=== PATIENT | male | born 1995 | race Caucasian/White ===

== ENCOUNTER 2018-06-11 17:35 | Emergency (ER) | payer OTHER ==
--- NOTE | 2018-06-11 18:09 | ER Report ---
History and Physical Time Seen By MD: 18:09 HPI/ROS CHIEF COMPLAINT: Requesting alcohol detox HISTORY OF PRESENT ILLNESS: 22-year-old male presents ambulatory to the ER requesting alcohol detox. Patient has an extensive history sits age 16 of drinking daily. He started out with 3 shots per day. Now he is on 6 shots per day of hard liquor. Patient states that he suffers blackouts, requiring eye- oyster opener. He's never had full-blown withdrawal seizure. Last weekend he tried to stop on his own, was unsuccessful. Patient has a student at [email or web address]. He also works. His drinking is beginning to interfere with his work and his school performance. Patient denies any previous alcohol treatment. Patient thinks he drinks mostly for depression. Patient denies family history of alcoholism. Patient's last alcohol was 4 hours ago. REVIEW OF SYSTEMS: Respiratory: No cough, no dyspnea. Cardiovascular: No chest pain, no palpitations. Gastrointestinal: No vomiting, no abdominal pain. Musculoskeletal: No back pain. Allergies: Coded Allergies: No Known Drug Allergies (Unverified , 06/11/18) Home Meds No Active Prescriptions or Reported Meds Reviewed Nurses Notes: Yes Old Medical Records Reviewed: Yes Constitutional Vital Sign - Last 24 Hours 06/11/18 06/11/18 18:34 20:00 Temp 98.0 Pulse 90 Resp 16 B/P (MAP) 127/92 128/51 (76) Pulse Ox 97 O2 Delivery Room Air Physical Exam General Appearance: The patient is alert, has no immediate need for airway pr otection and no current signs of toxicity. Vital signs stable, afebrile, mildly hypertensive, HEENT: Pupils equal and round no injection. Anicteric sclera, oropharynx without redness or exudate, mucous membranes are moist Respiratory: Chest is non tender, lungs are clear to auscultation. Cardiac: regular rate and rhythm Gastrointestinal: Abdomen is soft and non tender, no masses, bowel sounds no rmal. Musculoskeletal: Neck: Neck is supple and non tender. Extremities have full range of motion and are non tender. Skin: No rashes or lesions. DIFFERENTIAL DIAGNOSIS: After history and physical exam differential diagnosis was considered for depression including functional and major depression, situational depression, medication side effect, drugs and alcohol abuse. Medical Decision Making Data Points Result Diagram: 06/11/18184406/11/181844 Laboratory Hematology Test 06/11/18 18:22 06/11/18 18:45 Urine Color Yellow Urine Clarity Clear Urine pH 7.0 pH (4.8-9.5) Urine Specific [place] 1.006 Urine Protein Negative mg/dL (NEGATIVE) Urine Glucose (UA) Negative mg/dL (NEGATIVE) Urine Ketones Negative mg/dL (NEGATIVE) Urine Blood Negative (NEGATIVE) Urine Nitrite Negative (NEGATIVE) Urine Bilirubin Negative (NEGATIVE) Urine Urobilinogen Negative mg/dL (0.2-1.9) Urine Leukocyte Esterase Negative (NEGATIVE) Urine RBC <1 /HPF (0-2/HPF) Urine WBC <1 /HPF (0-5/HPF) Urine Squamous Epithelial Cells None /LPF (</=FEW) Urine Bacteria Negative /HPF (NONE-FEW) Urine Mucus None /HPF (NONE-FEW) Urine Opiates Screen Negative Urine Barbiturates Screen Negative Ur Tricyclic Antidepressants Screen Negative Urine Phencyclidine Screen Negative Urine Amphetamines Screen Negative Urine Benzodiazepines Screen Negative Urine Cocaine Screen Negative Urine Cannabinoids Screen Negative Red Blood Count 5.83 M/uL (4.00-5.60) Mean Corpuscular Volume 93.1 fL (80.0-96.0) Mean Corpuscular Hemoglobin 32.7 pg (26.0-33.0) Mean Corpuscular Hemoglobin Concent 35.1 g/dL (32.0-36.0) Red Cell Distribution Width 13.4 % (11.5-14.5) Mean Platelet Volume 8.9 fL (7.2-11.1) Neutrophils (%) (Auto) 61.8 % (39.4-72.5) Lymphocytes (%) (Auto) 29.7 % (17.6-49.6) Monocytes (%) (Auto) 7.7 % (4.1-12.4) Eosinophils (%) (Auto) 0.1 % (0.4-6.7) Basophils (%) (Auto) 0.7 % (0.3-1.4) Nucleated RBC Relative Count (auto) 0.1 /100WBC Neutrophils # (Auto) 2.6 K/uL (2.0-7.4) Lymphocytes # (Auto) 1.3 K/uL (1.3-3.6) Monocytes # (Auto) 0.3 K/uL (0.3-1.0) Eosinophils # (Auto) 0.0 K/uL (0.0-0.5) Basophils # (Auto) 0.0 K/uL (0.0-0.1) Nucleated RBC Absolute Count (auto) 0.01 K/uL Sodium Level 143 mmol/L (137-145) Potassium Level 4.0 mmol/L (3.5-5.0) Chloride Level 104 mmol/L (98-107) Carbon Dioxide Level 26 mmol/L (22-30) Blood Urea Nitrogen 7 mg/dl (9-21) Creatinine 0.90 mg/dl (0.66-1.25) Glomerular Filtration Rate Calc > 60.0 Random Glucose 93 mg/dl (75-110) Calcium Level 8.9 mg/dl (8.4-10.2) Magnesium Level 2.1 mg/dl (1.7-2.2) Total Bilirubin 0.8 mg/dl (0.2-1.3) Aspartate Amino Transf (AST/SGOT) 57 U/L (0-35) Alanine Aminotransferase (ALT/SGPT) 45 U/L (0-56) Alkaline Phosphatase 95 U/L (0-126) Total Protein 7.4 g/dl (6.3-8.2) Albumin 4.7 g/dl (3.5-5.0) Thyroid Stimulating Hormone (TSH) 0.79 uIU/ml (0.46-4.68) Salicylates Level < 10 mg/L Salicylate Last Dose Date unk Acetaminophen Level < 10 ug/ml Serum Alcohol 363 mg/dl Chemistry Test 06/11/18 18:22 06/11/18 18:45 Urine Color Yellow Urine Clarity Clear Urine pH 7.0 pH (4.8-9.5) Urine Specific [place] 1.006 Urine Protein Negative mg/dL (NEGATIVE) Urine Glucose (UA) Negative mg/dL (NEGATIVE) Urine Ketones Negative mg/dL (NEGATIVE) Urine Blood Negative (NEGATIVE) Urine Nitrite Negative (NEGATIVE) Urine Bilirubin Negative (NEGATIVE) Urine Urobilinogen Negative mg/dL (0.2-1.9) Urine Leukocyte Esterase Negative (NEGATIVE) Urine RBC <1 /HPF (0-2/HPF) Urine WBC <1 /HPF (0-5/HPF) Urine Squamous Epithelial Cells None /LPF (</=FEW) Urine Bacteria Negative /HPF (NONE-FEW) Urine Mucus None /HPF (NONE-FEW) Urine Opiates Screen Negative Urine Barbiturates Screen Negative Ur Tricyclic Antidepressants Screen Negative Urine Phencyclidine Screen Negative Urine Amphetamines Screen Negative Urine Benzodiazepines Screen Negative Urine Cocaine Screen Negative Urine Cannabinoids Screen Negative White Blood Count 4.2 k/uL (4.5-11.0) Red Blood Count 5.83 M/uL (4.00-5.60) Hemoglobin 19.1 g/dL (14.0-18.0) Hematocrit 54.3 % (42.0-52.0) Mean Corpuscular Volume 93.1 fL (80.0-96.0) Mean Corpuscular Hemoglobin 32.7 pg (26.0-33.0) Mean Corpuscular Hemoglobin Concent 35.1 g/dL (32.0-36.0) Red Cell Distribution Width 13.4 % (11.5-14.5) Platelet Count 305 K/uL (150-450) Mean Platelet Volume 8.9 fL (7.2-11.1) Neutrophils (%) (Auto) 61.8 % (39.4-72.5) Lymphocytes (%) (Auto) 29.7 % (17.6-49.6) Monocytes (%) (Auto) 7.7 % (4.1-12.4) Eosinophils (%) (Auto) 0.1 % (0.4-6.7) Basophils (%) (Auto) 0.7 % (0.3-1.4) Nucleated RBC Relative Count (auto) 0.1 /100WBC Neutrophils # (Auto) 2.6 K/uL (2.0-7.4) Lymphocytes # (Auto) 1.3 K/uL (1.3-3.6) Monocytes # (Auto) 0.3 K/uL (0.3-1.0) Eosinophils # (Auto) 0.0 K/uL (0.0-0.5) Basophils # (Auto) 0.0 K/uL (0.0-0.1) Nucleated RBC Absolute Count (auto) 0.01 K/uL Glomerular Filtration Rate Calc > 60.0 Calcium Level 8.9 mg/dl (8.4-10.2) Magnesium Level 2.1 mg/dl (1.7-2.2) Total Bilirubin 0.8 mg/dl (0.2-1.3) Aspartate Amino Transf (AST/SGOT) 57 U/L (0-35) Alanine Aminotransferase (ALT/SGPT) 45 U/L (0-56) Alkaline Phosphatase 95 U/L (0-126) Total Protein 7.4 g/dl (6.3-8.2) Albumin 4.7 g/dl (3.5-5.0) Thyroid Stimulating Hormone (TSH) 0.79 uIU/ml (0.46-4.68) Salicylates Level < 10 mg/L Salicylate Last Dose Date unk Acetaminophen Level < 10 ug/ml Serum Alcohol 363 mg/dl Toxicology Test 06/11/18 18:22 06/11/18 18:45 Urine Opiates Screen Negative Urine Barbiturates Screen Negative Ur Tricyclic Antidepressants Screen Negative Urine Phencyclidine Screen Negative Urine Amphetamines Screen Negative Urine Benzodiazepines Screen Negative Urine Cocaine Screen Negative Urine Cannabinoids Screen Negative Salicylates Level < 10 mg/L Salicylate Last Dose Date unk Acetaminophen Level < 10 ug/ml Serum Alcohol 363 mg/dl Urinalysis Test 06/11/18 18:22 Urine Color Yellow Urine Clarity Clear Urine pH 7.0 pH (4.8-9.5) Urine Specific [place] 1.006 Urine Protein Negative mg/dL (NEGATIVE) Urine Glucose (UA) Negative mg/dL (NEGATIVE) Urine Ketones Negative mg/dL (NEGATIVE) Urine Blood Negative (NEGATIVE) Urine Nitrite Negative (NEGATIVE) Urine Bilirubin Negative (NEGATIVE) Urine Urobilinogen Negative mg/dL (0.2-1.9) Urine Leukocyte Esterase Negative (NEGATIVE) Urine RBC <1 /HPF (0-2/HPF) Urine WBC <1 /HPF (0-5/HPF) Urine Squamous Epithelial Cells None /LPF (</=FEW) Urine Bacteria Negative /HPF (NONE-FEW) Urine Mucus None /HPF (NONE-FEW) ED Course/Re-evaluation Clinical Indication for ER IV: Hydration, IV Access ED Course Patient was admitted to an examination room. H&P was done. The differential diagnoses was considered. Patient was treated with IV banana bag. Diagnostic evaluation was ordered. Patient's requesting medical detox. He is willing to be admitted voluntarily. He has no suicidal ideation. Results of his diag nostic studies are discussed with behavioral health services staff Ashley Guy who accepts patient for admission for detox. 06/11/2018 7:23:23 pm case discussed with Ashley Guy nurse practitioner [facility] Decision to Disposition Date: Jun 11, 2018 Decision to Disposition Time: 18:33 Depart Departure Latest Vital Signs Vital Signs Date Time Temp Pulse Resp B/P (MAP) Pulse Ox O2 Delivery O2 Flow Rate FiO2 06/11/18 20:00 128/51 (76) 06/11/18 18:34 98.0 90 16 97 Room Air Impression: Primary Impression: Alcohol dependence Condition: Improved Disposition: XFER TO [facility] New Scripts No Active Prescriptions or Reported Meds Problem Qualifiers Primary Impression: Alcohol dependence Substance use status: uncomplicated Qualified Codes: F10.20 - Alcohol dependence, uncomplicated ROE CHAUDHRY DO Jun 11, 2018 18:09
[2018-06-11] MEDS ORDERED: THIAMINE HCL(*) 200 MG/2 ML IN 100 MG, FOLIC ACID(*) 50 MG/10 ML INJ 1 MG, MULTIVITAMIN... IV ONE (18:19)
[2018-06-11 18:55] LABS: PLATELET COUNT, AUTOMATED 305 K/uL (150-450)
[2018-06-11 20:00] VITALS: BP 128/51
== END 2018-06-11 20:20 ==
LOC: ER 18:33
DX: F10.20 Alcohol dependence, uncomplicated (principal)
CPT/HCPCS: 80305; 80320; 80329; 81001; 83735; 84443; 85025; 96365; 99284; J3411; J3475; J7030; 82040; 82247; 82310; 82374; 82435; 82565; 82947; 84075; 84132; 84155; 84295; 84450; 84460; 84520

== ENCOUNTER 2018-06-11 19:47 | Inpatient (IN) | payer OTHER ==
[~2018-06-11] VITALS: Ht 175.3 cm; Wt 59.0 kg
[2018-06-11 20:25] VITALS: BP 130/80
[2018-06-11] MEDS ORDERED: DIAZEPAM 10 MG TAB PO PRN (20:55)
[2018-06-12] MEDS ORDERED: MAG HYD/AL HYD/SIMETH 30ML UDC PO PRN (00:20)
[2018-06-12 01:10] VITALS: BP 132/86
[2018-06-12] MEDS: DIAZEPAM 10 MG TAB PO PRN ×6 (01:33→10:17)
[2018-06-12 07:50] VITALS: BP 124/64
[2018-06-12] MEDS: MULTIVITAMINS PO SCH (08:12)
[2018-06-12] MEDS: THIAMINE HCL 100 MG TAB PO SCH (08:12)
[2018-06-12] MEDS: FOLIC ACID 1 MG TAB PO SCH (08:12)
[2018-06-12 08:50] VITALS: BP 118/88
[2018-06-12 12:20] VITALS: BP 126/80
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
[2018-06-12 16:55] VITALS: BP 118/82
[2018-06-12 21:13] VITALS: BP 127/81
[2018-06-13 06:11] VITALS: BP 120/83
[2018-06-13] MEDS: FOLIC ACID 1 MG TAB PO SCH (08:12)
[2018-06-13] MEDS: MULTIVITAMINS PO SCH (08:12)
[2018-06-13] MEDS: THIAMINE HCL 100 MG TAB PO SCH (08:13)
--- NOTE | 2018-06-13 08:29 | BHS Progress Note ---
S - Subjective Progress Notes Subjective "I guess I drank too much and thought it was warranted to come in here." Denies depression, some anxiety "about money issues" states has missed two days of work, hasn't notified parents or employer of admission Denies anger or mood swings, sleep sufficient, reports sleep insufficient at home Attending [employer] studying linguistics, working at [employer] History of drinking eight shots of Vodka dailly Fine tremor, denies NVD Suicidal Ideation: None Homicidal Ideation: None S - Objective Physical Exam Vital Signs Vital Signs Date Time Temp Pulse Resp B/P (MAP) Pulse Ox O2 Delivery O2 Flow Rate FiO2 06/13/18 06:11 98.1 72 120/83 (95) 95 Room Air 06/12/18 16:55 20 Muscle Strength and Tone: WNL Gait and Station: Steady BH Medications Reviewed: Side Effects, Benefits of Medication Allergies Reviewed: Yes Mental Status Exam General Appearance: Casual, Well Groomed, Good Eye Contact, Cooperative, Polite, Good Interaction Speech: Clear, Spontaneous, Normal Rate, Normal Rhythm, Normal Volume, Normal Tone Mood: Dysthmic/Depressed (denies depression, low mood), Euthymic Affect: Full and Appropriate, Calm, Neutral Thought Process: Logical, Goal Directed; No Loose Associations, No Flight of Ideas Thought Content: No Suicidal Ideation, No Homicidal Ideation, No Delusions, No Auditory Halllucinations, No Visual Hallucinations, No Thought Broadcasting, No Ideas of Reference, No Obsessions Sensorium: Clear Cognition: Alert & Oriented-Person, Alert & Oriented-Place, Alert & Oriented- Time, Rabou-Rvbjkhyp-Wvekehwzd Memory: Immediate, Recent, Remote Intelligence: Average Microbiology Medications (Trade) Dose Ordered Sig/Ministerio Route PRN Reason Start Time Stop Time Status Last Admin Dose Admin Diazepam (Valium(*) 10 Mg Tab (Or Equiv)) 20 mg Q1H PRN PO FOLLOW CIWA PROTOCOL 06/11/18 20:55 06/25/18 20:54 06/12/18 10:17 Folic Acid (Folic Acid (*) 1 Mg Tab) 1 mg QDAY PO 06/12/18 09:00 07/12/18 08:59 06/13/18 08:12 Multivitamins (Thera-M Enhanced Tab (Or Equiv)) 1 each QDAY PO 06/12/18 09:00 07/12/18 08:59 06/13/18 08:12 Thiamine HCl (Vitamin B-1(*) 100 Mg Tab (Or Equiv)) 100 mg QDAY PO 06/12/18 09:00 07/12/18 08:59 06/13/18 08:13 [facility] Assessment and Plan [id number] Encounter Date: Jun 13, 2018 [id number] Encounter Time: 08:26 Multpiple Antipsychotics Used: No Problems: (1) Alcohol withdrawal Status: Acute (2) Alcohol use disorder, severe, dependence Status: Chronic Condition Continue [facility]WA protocol Maintain precautions Continue detox,k discuss outpatient substance abuse treatment DAAJ SOTO NP Jun 13, 2018 08:29
[2018-06-13 10:00] VITALS: BP 108/58
[2018-06-13 14:20] VITALS: BP 102/62
[2018-06-13 20:38] VITALS: BP 121/74
[2018-06-14 06:13] VITALS: BP 124/82
[2018-06-14] MEDS: FOLIC ACID 1 MG TAB PO SCH (08:17)
[2018-06-14] MEDS: THIAMINE HCL 100 MG TAB PO SCH (08:17)
[2018-06-14] MEDS: MULTIVITAMINS PO SCH (08:17)
--- NOTE | 2018-06-14 08:25 | BHS Progress Note ---
S - Subjective Progress Notes Subjective "I'm doing ok. I might consider AA but other than that I don't know if I have time for anything else." States had slight urge to drink last night, sleep variable Denies NVD, denies tremor, alcohol withdrawal considered complete Denies depression, anxiety or anger Suicidal Ideation: None Homicidal Ideation: None S - Objective Physical Exam Vital Signs Vital Signs Date Time Temp Pulse Resp B/P (MAP) Pulse Ox O2 Delivery O2 Flow Rate FiO2 06/14/18 06:13 97.2 62 124/82 (96) 97 Room Air 06/13/18 14:20 16 Muscle Strength and Tone: WNL Gait and Station: Steady [facility] Medications Reviewed: Side Effects, Benefits of Medication Allergies Reviewed: Yes Mental Status Exam General Appearance: Casual, Well Groomed, Good Eye Contact, Cooperative, Polite, Good Interaction Speech: Clear, Spontaneous, Normal Rate, Normal Rhythm, Normal Volume, Normal Tone Mood: Dysthmic/Depressed (denies depression, low mood), Euthymic Affect: Full and Appropriate, Calm, Neutral, Flat Thought Process: Logical, Goal Directed; No Loose Associations, No Flight of Ideas Thought Content: No Suicidal Ideation, No Homicidal Ideation, No Delusions, No Auditory Halllucinations, No Visual Hallucinations, No Thought Broadcasting, No Ideas of Reference, No Obsessions Sensorium: Clear Cognition: Alert & Oriented-Person, Alert & Oriented-Place, Alert & Oriented- Time, Zuufa-Zdbtypys-Fuzojbmvu Memory: Immediate, Recent, Remote Intelligence: Average [facility] Assessment and Plan Ojux-[id number] Encounter Date: Jun 14, 2018 [id number] Encounter Time: 08:20 Multpiple Antipsychotics Used: No Problems: (1) Alcohol use disorder, severe, dependence Status: Chronic (2) Alcohol withdrawal Status: Resolved Condition Discharge to home Alcohol withdrawal considered complete Follow up with individual substance abuse counseling, AA Crisis line # provided, encourage use for worsening s/s Return to ER for SI/HI, worsening symptoms DAJA SOTO NP Jun 14, 2018 08:25
[2018-06-14 09:28] VITALS: BP 118/82
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
== END 2018-06-14 10:05 | disposition home or self-care (01) | DRG 897 ==
LOC: BHS 19:47
PROVIDERS: ADMIT Nurse Practitioner Psychiatric/Mental Health; ATTEND Nurse Practitioner Psychiatric/Mental Health
DX: F10.230 Alcohol dependence with withdrawal, uncomplicated (principal); F17.210 Nicotine dependence, cigarettes, uncomplicated; F41.9 Anxiety disorder, unspecified; Y90.8 Blood alcohol level of 240 mg/100 ml or more; Z91.5 Personal history of self-harm; Z73.3 Stress, not elsewhere classified; Z55.9 Problems related to education and literacy, unspecified; Z81.1 Family history of alcohol abuse and dependence; Z81.8 Family history of other mental and behavioral disorders

== ENCOUNTER 2018-09-18 08:12 | Emergency (ER) | payer OTHER ==
--- NOTE | 2018-09-18 08:15 | ER Report ---
History and Physical Time Seen By MD: 08:15 HPI/ROS CHIEF COMPLAINT: Alcohol intoxication, withdrawal symptoms HISTORY OF PRESENT ILLNESS: Patient is a 22-year-old male with complaints of alcoholism here after heavily drinking yesterday. Patient was brought to the emergency department with desire for detoxification from alcohol. Patient reports ongoing heavy alcohol consumption. Denies homicidal or suicidal ideations. REVIEW OF SYSTEMS: Constitutional: No fever, no chills. Eyes: No discharge. ENT: No sore throat. Cardiovascular: No chest pain, no palpitations. Respiratory: No cough, no shortness of breath. Gastrointestinal: No abdominal pain, no vomiting. Genitourinary: No hematuria. Musculoskeletal: No back pain. Skin: No rashes. Neurological: No headache. Allergies: Coded Allergies: No Known Drug Allergies (Unverified , 06/11/18) Home Meds Reported Medications Nicotine (NICOTROL) 10 Mg/Inh Ctr, 10 MG INH PRN PRN for NICOTINE REPLACEMENT 09/20/18 Hx Smoking: Yes Smoking Status: Current: Every Day Smoker, Heavy Tobacco Smoker Hx Alcohol Use: Yes Physical Exam General Appearance: The patient is alert, has no immediate need for airway protection and no signs of toxicity. Withdrawal symptoms Eyes: Pupils equal and round no pallor or injection. ENT, Mouth: Mucous membranes are moist. Respiratory: There are no retractions, lungs are clear to auscultation. Cardiovascular: Regular rate and rhythm. [ ] Gastrointestinal: Abdomen is soft and non tender, no masses, bowel sounds normal. Neurological: No focal neurological findings Skin: Warm and dry, no rashes. Musculoskeletal: Neck is supple non tender. Extremities are nontender, nonswollen and have full range of motion. DIFFERENTIAL DIAGNOSIS: After history and physical exam differential diagnosis was considered for alcohol dependence, alcohol withdrawal, polysubstance abuse, depression Medical Decision Making Data Points Laboratory Hematology Test 09/18/18 08:30 09/18/18 09:36 Red Blood Count 5.54 M/uL (4.00-5.60) Mean Corpuscular Volume 90.6 fL (80.0-96.0) Mean Corpuscular Hemoglobin 31.4 pg (26.0-33.0) Mean Corpuscular Hemoglobin Concent 34.6 g/dL (32.0-36.0) Red Cell Distribution Width 12.5 % (11.5-14.5) Mean Platelet Volume 9.3 fL (7.2-11.1) Neutrophils (%) (Auto) 68.7 % (39.4-72.5) Lymphocytes (%) (Auto) 23.4 % (17.6-49.6) Monocytes (%) (Auto) 7.6 % (4.1-12.4) Eosinophils (%) (Auto) 0.1 % (0.4-6.7) Basophils (%) (Auto) 0.2 % (0.3-1.4) Nucleated RBC Relative Count (auto) 0.1 /100WBC Neutrophils # (Auto) 7.0 K/uL (2.0-7.4) Lymphocytes # (Auto) 2.4 K/uL (1.3-3.6) Monocytes # (Auto) 0.8 K/uL (0.3-1.0) Eosinophils # (Auto) 0.0 K/uL (0.0-0.5) Basophils # (Auto) 0.0 K/uL (0.0-0.1) Nucleated RBC Absolute Count (auto) 0.01 K/uL Sodium Level 139 mmol/L (137-145) Potassium Level 4.0 mmol/L (3.5-5.0) Chloride Level 102 mmol/L (98-107) Carbon Dioxide Level 18 mmol/L (22-30) Blood Urea Nitrogen 14 mg/dl (9-21) Creatinine 0.80 mg/dl (0.66-1.25) Glomerular Filtration Rate Calc > 60.0 Random Glucose 67 mg/dl (75-110) Calcium Level 8.8 mg/dl (8.4-10.2) Magnesium Level 1.6 mg/dl (1.7-2.2) Total Bilirubin 0.8 mg/dl (0.2-1.3) Aspartate Amino Transf (AST/SGOT) 88 U/L (0-35) Alanine Aminotransferase (ALT/SGPT) 81 U/L (0-56) Alkaline Phosphatase 99 U/L (0-126) Total Protein 7.1 g/dl (6.3-8.2) Albumin 4.8 g/dl (3.5-5.0) Thyroid Stimulating Hormone (TSH) 1.38 uIU/ml (0.46-4.68) Salicylates Level < 10 mg/L Salicylate Last Dose Date Unk Acetaminophen Level < 10 ug/ml Serum Alcohol 82 mg/dl Urine Color Yellow Urine Clarity Clear Urine pH 5.0 pH (4.8-9.5) Urine Specific [place] 1.028 Urine Protein Negative mg/dL (NEGATIVE) Urine Glucose (UA) Negative mg/dL (NEGATIVE) Urine Ketones 80 mg/dL (NEGATIVE) Urine Blood Negative (NEGATIVE) Urine Nitrite Negative (NEGATIVE) Urine Bilirubin Negative (NEGATIVE) Urine Urobilinogen Negative mg/dL (0.2-1.9) Urine Leukocyte Esterase Negative (NEGATIVE) Urine RBC <1 /HPF (0-2/HPF) Urine WBC <1 /HPF (0-5/HPF) Urine Squamous Epithelial Cells Few /LPF (</=FEW) Urine Bacteria Negative /HPF (NONE-FEW) Urine Hyaline Casts Many /LPF (NONE-FEW) Urine Mucus Few /HPF (NONE-FEW) Urine Opiates Screen Negative Urine Barbiturates Screen Negative Ur Tricyclic Antidepressants Screen Negative Urine Phencyclidine Screen Negative Urine Amphetamines Screen Negative Urine Benzodiazepines Screen Negative Urine Cocaine Screen Negative Urine Cannabinoids Screen Negative Chemistry Test 09/18/18 08:30 09/18/18 09:36 White Blood Count 10.2 k/uL (4.5-11.0) Red Blood Count 5.54 M/uL (4.00-5.60) Hemoglobin 17.4 g/dL (14.0-18.0) Hematocrit 50.2 % (42.0-52.0) Mean Corpuscular Volume 90.6 fL (80.0-96.0) Mean Corpuscular Hemoglobin 31.4 pg (26.0-33.0) Mean Corpuscular Hemoglobin Concent 34.6 g/dL (32.0-36.0) Red Cell Distribution Width 12.5 % (11.5-14.5) Platelet Count 301 K/uL (150-450) Mean Platelet Volume 9.3 fL (7.2-11.1) Neutrophils (%) (Auto) 68.7 % (39.4-72.5) Lymphocytes (%) (Auto) 23.4 % (17.6-49.6) Monocytes (%) (Auto) 7.6 % (4.1-12.4) Eosinophils (%) (Auto) 0.1 % (0.4-6.7) Basophils (%) (Auto) 0.2 % (0.3-1.4) Nucleated RBC Relative Count (auto) 0.1 /100WBC Neutrophils # (Auto) 7.0 K/uL (2.0-7.4) Lymphocytes # (Auto) 2.4 K/uL (1.3-3.6) Monocytes # (Auto) 0.8 K/uL (0.3-1.0) Eosinophils # (Auto) 0.0 K/uL (0.0-0.5) Basophils # (Auto) 0.0 K/uL (0.0-0.1) Nucleated RBC Absolute Count (auto) 0.01 K/uL Glomerular Filtration Rate Calc > 60.0 Calcium Level 8.8 mg/dl (8.4-10.2) Magnesium Level 1.6 mg/dl (1.7-2.2) Total Bilirubin 0.8 mg/dl (0.2-1.3) Aspartate Amino Transf (AST/SGOT) 88 U/L (0-35) Alanine Aminotransferase (ALT/SGPT) 81 U/L (0-56) Alkaline Phosphatase 99 U/L (0-126) Total Protein 7.1 g/dl (6.3-8.2) Albumin 4.8 g/dl (3.5-5.0) Thyroid Stimulating Hormone (TSH) 1.38 uIU/ml (0.46-4.68) Salicylates Level < 10 mg/L Salicylate Last Dose Date Unk Acetaminophen Level < 10 ug/ml Serum Alcohol 82 mg/dl Urine Color Yellow Urine Clarity Clear Urine pH 5.0 pH (4.8-9.5) Urine Specific [place] 1.028 Urine Protein Negative mg/dL (NEGATIVE) Urine Glucose (UA) Negative mg/dL (NEGATIVE) Urine Ketones 80 mg/dL (NEGATIVE) Urine Blood Negative (NEGATIVE) Urine Nitrite Negative (NEGATIVE) Urine Bilirubin Negative (NEGATIVE) Urine Urobilinogen Negative mg/dL (0.2-1.9) Urine Leukocyte Esterase Negative (NEGATIVE) Urine RBC <1 /HPF (0-2/HPF) Urine WBC <1 /HPF (0-5/HPF) Urine Squamous Epithelial Cells Few /LPF (</=FEW) Urine Bacteria Negative /HPF (NONE-FEW) Urine Hyaline Casts Many /LPF (NONE-FEW) Urine Mucus Few /HPF (NONE-FEW) Urine Opiates Screen Negative Urine Barbiturates Screen Negative Ur Tricyclic Antidepressants Screen Negative Urine Phencyclidine Screen Negative Urine Amphetamines Screen Negative Urine Benzodiazepines Screen Negative Urine Cocaine Screen Negative Urine Cannabinoids Screen Negative Toxicology Test 09/18/18 08:30 09/18/18 09:36 Salicylates Level < 10 mg/L Salicylate Last Dose Date Unk Acetaminophen Level < 10 ug/ml Serum Alcohol 82 mg/dl Urine Opiates Screen Negative Urine Barbiturates Screen Negative Ur Tricyclic Antidepressants Screen Negative Urine Phencyclidine Screen Negative Urine Amphetamines Screen Negative Urine Benzodiazepines Screen Negative Urine Cocaine Screen Negative Urine Cannabinoids Screen Negative Urinalysis Test 09/18/18 09:36 Urine Color Yellow Urine Clarity Clear Urine pH 5.0 pH (4.8-9.5) Urine Specific [place] 1.028 Urine Protein Negative mg/dL (NEGATIVE) Urine Glucose (UA) Negative mg/dL (NEGATIVE) Urine Ketones 80 mg/dL (NEGATIVE) Urine Blood Negative (NEGATIVE) Urine Nitrite Negative (NEGATIVE) Urine Bilirubin Negative (NEGATIVE) Urine Urobilinogen Negative mg/dL (0.2-1.9) Urine Leukocyte Esterase Negative (NEGATIVE) Urine RBC <1 /HPF (0-2/HPF) Urine WBC <1 /HPF (0-5/HPF) Urine Squamous Epithelial Cells Few /LPF (</=FEW) Urine Bacteria Negative /HPF (NONE-FEW) Urine Hyaline Casts Many /LPF (NONE-FEW) Urine Mucus Few /HPF (NONE-FEW) ED Course/Re-evaluation ED Course Patient is a 22-year-old male here with complaints of heavy alcohol consumption, withdrawal symptoms. Patient came to the emergency department in order to be admitted for detoxification from alcohol. Patient is hemodynamically stable. Patient was given normal saline boluses, Zofran. Patient labs were unremarkable. Patient was admitted to behavioral services for detox. Decision to Disposition Date: Sep 18, 2018 Decision to Disposition Time: 10:00 Depart Departure Impression: Primary Impression: Alcohol dependence Condition: Condition Unchanged Disposition: XFER TO [facility] KARINA RIVERA DO Sep 18, 2018 08:15
[2018-09-18] MEDS ORDERED: NS(*) 0.9% 1000 ML BAG 1,000 ML IV ONE (08:23)
[2018-09-18] MEDS ORDERED: THIAMINE HCL(*) 200 MG/2 ML IN 100 MG, FOLIC ACID(*) 50 MG/10 ML INJ 1 MG, MULTIVITAMIN... IV ONE (08:24)
[2018-09-18 08:39] LABS: PLATELET COUNT, AUTOMATED 301 K/uL (150-450)
[2018-09-18] MEDS ORDERED: ONDANSETRON 4 MG/2 ML VIAL IVP ONE (08:55)
[2018-09-18 10:00] VITALS: BP 125/66
== END 2018-09-18 10:38 | disposition other institution (70) ==
LOC: ER 08:30
DX: F10.20 Alcohol dependence, uncomplicated (principal)
CPT/HCPCS: 36415; 80305; 80320; 80329; 81001; 83735; 84443; 85025; 96365; 96375; 99284; J2405; J3411; J3475; J7030; 82040; 82247; 82310; 82374; 82435; 82565; 82947; 84075; 84132; 84155; 84295; 84450; 84460; 84520

== ENCOUNTER 2018-09-18 10:17 | Inpatient (IN) | payer OTHER ==
[~2018-09-18] VITALS: Ht 177.8 cm; Wt 62.6 kg
[2018-09-18] MEDS ORDERED: MAG HYD/AL HYD/SIMETH 30ML UDC PO PRN (10:45)
[2018-09-18 10:50] VITALS: BP 124/72
[2018-09-18] MEDS ORDERED: DIAZEPAM 10 MG TAB PO ONE (11:05)
[2018-09-18] MEDS ORDERED: NICOTINE CARTRIDGE 1 EA PO PRN (11:35)
[2018-09-18] MEDS: NICOTINE INH SYSTEM 10 MG/INH INH PRN ×2 (12:22→17:43)
[2018-09-18 12:45] VITALS: BP 118/60
--- NOTE | 2018-09-18 16:30 | HISTORY AND PHYSICAL ---
DATE OF ADMISSION: September 18, 2018 The patient was seen at approximately 11 a.m. for this history and physical on 09/18/18. CHIEF COMPLAINT "I drank way too much last night." HISTORY OF PRESENT ILLNESS This is the second [facility] admission for this 22-year-old male who was here on a voluntary basis for alcohol detox. His previous admission here was in May 2018. After that, he says he did not follow up with AA or the IOP that he had been referred to. He says that last night, he drank five or six shots of vodka at minimum and then was feeling ill and called his father to see if his father could come and bring him some food and liquids. His father was working, and instead he sent an ambulance, and the patient came voluntarily to the emergency room. He is requesting alcohol detox. He says he drinks vodka five or six shots every night and often a shot or two in the morning. He says that this is actually a decrease for him. Prior to his detox here in May, he was drinking a gallon of vodka every three or four days. The patient has no history of withdrawal seizures nor of delirium. The patient was cooperative in the emergency room and admitted to [facility]. He indicates that he has a little bit of depression at about a 3 or 4/10, and he says this is because he gets lonely sometimes. He denies any suicidal ideation. PAST PSYCHIATRIC HISTORY He was here in May for an alcohol detox, which was brief and uncomplicated. He did not follow up afterwards with recommended IOP treatment. He has never attended an AA meeting. He has never been in outpatient therapy, and he has never had any suicidal ideation nor attempts. FAMILY HISTORY He has a brother with schizophrenia who lives with his mother. He has a brother who has a substance use disorder. His maternal grandfather of complications related to alcoholism. PAST MEDICAL HISTORY Negative. ALLERGIES He is not allergic to any medications. MEDICATIONS He is on no standing medications at this time. SOCIAL HISTORY The patient was born in [place], [place], to parents who were and still are. He is the youngest of five children. He graduated high school in [place] and says he had pretty good grades. He did one year at the [employer], but is now studying at [employer] majoring in linguistics with an emphasis on Croatian. 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 He lives alone in an apartment. He is not dating anyone, but he does have a best friend who is female, and she is very supportive. He says he has a good relationship with his parents. His father works as a systems librarian of a [employer]. VICTIM ISSUES He denies any history of physical or sexual abuse. SUBSTANCE ABUSE HISTORY He started drinking when he was about 16. When he was around 17, he was abusing Vicodin. He has tried marijuana in the past, but currently his drug of choice is alcohol. He also smokes about a pack per day of cigarettes. PHYSICAL EXAMINATION Please see the emergency room physician's report. VITAL SIGNS: Temperature 99.9, pulse 106, respiratory rate 16, blood pressure 124/72, pulse ox is 92% on room air. LABORATORY STUDIES CBC is within normal limits. CO2 is low at 18. Random glucose low at 67. Magnesium low at 1.6. AST high at 88. ALT high at 81. TSH is normal at 1.38. His tox screen is negative. His serum alcohol is 82. His urinalysis is positive for high ketones at 80 and many hyaline casts, but otherwise is normal. MENTAL STATUS EXAMINATION He is somewhat disheveled and thin with a short stubble of a daniels. He is cooperative. He displays variable to poor eye contact with psychomotor retardation. His speech was slow and quiet. He describes his mood as "okay," although his affect appears depressed. His thought process is logical and goal directed. His thought content is negative for any suicidal ideation, homicidal ideation, auditory hallucinations, visual hallucinations, or delusions. He is alert and fully oriented to person, place, time, and situation. Memory is intact for immediate, recent, and remote recall. Intelligence is average based on interview. Insight and judgment are fair. IMPRESSION 1. Alcohol use disorder, severe. 2. Alcohol withdrawal. PLAN He is admitted to [facility] and maintained on fall precautions. He is being detoxed using Valium as per the [facility] protocol. He will attend individual and group therapies with a focus on sobriety skills. We will assess for any need for other medications. His estimated length of stay will be three to five days. [facility]
[2018-09-18 17:30] VITALS: BP 122/80
[2018-09-18] MEDS: DIAZEPAM 10 MG TAB PO PRN ×3 (17:42→19:47)
[2018-09-18 22:47] VITALS: BP 117/79
--- NOTE | 2018-09-19 05:52 | NUR ---
Patient up one time during night to use bathroom and request ear plugs d/t room mate snoring. Has slept well rest of night. Currently laying in bed with ou closed, no s/s of distress or discomfort noted.
[2018-09-19 06:36] VITALS: BP 109/87
[2018-09-19] MEDS: NICOTINE INH SYSTEM 10 MG/INH INH PRN ×3 (08:14→20:12)
[2018-09-19] MEDS: MULTIVITAMINS TAB PO SCH (08:14)
[2018-09-19] MEDS: THIAMINE HCL 100 MG TAB PO SCH (08:14)
[2018-09-19] MEDS: FOLIC ACID 1 MG TAB PO SCH (08:15)
[2018-09-19 08:56] VITALS: BP 117/75
--- NOTE | 2018-09-19 10:28 | BHS Progress Note ---
S - Subjective Progress Notes Subjective "I thought this time I could quit drinking. I'm thinking about AA ." Denies tremor, nausea, diarrhea States began drinking again in July, drinking 5-6 shots daily Denies depression, anxiety, anger Sleep sufficient, tolerating food and fluids Suicidal Ideation: None Homicidal Ideation: None S - Objective Physical Exam Vital Signs Vital Signs Date Time Temp Pulse Resp B/P (MAP) Pulse Ox O2 Delivery O2 Flow Rate FiO2 09/19/18 08:56 98.2 68 16 117/75 (89) 96 Room Air Deferred Medications (Trade) Dose Ordered Sig/Ministerio Route PRN Reason Start Time Stop Time Status Last Admin Dose Admin Diazepam (Valium(*) 10 Mg Tab (Or Equiv)) 10 mg ONCE ONCE PO 09/18/18 11:05 09/18/18 11:16 DC 09/18/18 11:32 Folic Acid (Folic Acid (*) 1 Mg Tab) 1 mg QDAY PO 09/19/18 09:00 10/19/18 08:59 09/19/18 08:15 Miscellaneous Information (Nicotrol Cartridge) 1 each PRN PRN PO NICOTINE REPLACEMENT 09/18/18 11:35 10/18/18 11:34 09/18/18 12:22 Multivitamins (Thera-M Enhanced Tab (Or Equiv)) 1 each QDAY PO 09/19/18 09:00 10/19/18 08:59 09/19/18 08:14 Nicotine (Nicotrol Inhaler 10 Mg/Inh (Or Equiv)) 10 mg Q2H PRN INH NICOTINE REPLACEMENT 09/18/18 11:35 10/18/18 11:34 09/19/18 08:14 Thiamine HCl (Vitamin B-1(*) 100 Mg Tab (Or Equiv)) 100 mg QDAY PO 09/19/18 09:00 10/19/18 08:59 09/19/18 08:14 Muscle Strength and Tone: WNL Gait and Station: Steady [facility] Medications Reviewed: Side Effects, Benefits of Medication, Risks Allergies Reviewed: Yes Mental Status Exam General Appearance: Casual, Well Groomed, Good Eye Contact, Cooperative, Polite, Good Interaction Speech: Clear, Spontaneous, Normal Rate, Normal Rhythm, Normal Volume, Normal Tone Mood: No Dysthmic/Depressed; Euthymic; No Hyperthymic Affect: Full and Appropriate, Calm, Neutral Thought Process: Organized, Logical, Goal Directed; No Loose Associations, No Flight of Ideas Thought Content: No Suicidal Ideation, No Homicidal Ideation, No Delusions, No Auditory Halllucinations, No Visual Hallucinations, No Thought Broadcasting, No Ideas of Reference, No Obsessions, No Compulsions Sensorium: Clear Cognition: Alert & Oriented-Person, Alert & Oriented-Place, Alert & Oriented- Time, Hudft-Ghgfekeg-Nyqoxceba Memory: Immediate, Recent, Remote Intelligence: Average Insight Judgment: Intact, Appropriate, Fair Imaging Medications (Trade) Dose Ordered Sig/Ministerio Route PRN Reason Start Time Stop Time Status Last Admin Dose Admin Diazepam (Valium(*) 10 Mg Tab (Or Equiv)) 10 mg ONCE ONCE PO 09/18/18 11:05 09/18/18 11:16 DC 09/18/18 11:32 Folic Acid (Folic Acid (*) 1 Mg Tab) 1 mg QDAY PO 09/19/18 09:00 10/19/18 08:59 09/19/18 08:15 Miscellaneous Information (Nicotrol Cartridge) 1 each PRN PRN PO NICOTINE REPLACEMENT 09/18/18 11:35 10/18/18 11:34 09/18/18 12:22 Multivitamins (Thera-M Enhanced Tab (Or Equiv)) 1 each QDAY PO 09/19/18 09:00 10/19/18 08:59 09/19/18 08:14 Nicotine (Nicotrol Inhaler 10 Mg/Inh (Or Equiv)) 10 mg Q2H PRN INH NICOTINE REPLACEMENT 09/18/18 11:35 10/18/18 11:34 09/19/18 08:14 Thiamine HCl (Vitamin B-1(*) 100 Mg Tab (Or Equiv)) 100 mg QDAY PO 09/19/18 09:00 10/19/18 08:59 09/19/18 08:14 [facility] Assessment and Plan [id number] Encounter Date: Sep 19, 2018 [id number] Encounter Time: 10:20 [facility] Plan: Admit to Unit, Necessary Precautions, Individual/Group Therapy, Admin/Titrate Meds, Educate Patient Multpiple Antipsychotics Used: No Problems: (1) Alcohol use disorder, severe, dependence Status: Chronic (2) Alcohol withdrawal Status: Acute Condition Continue encouragement of AA, outpatient substance abuse therapy Continue [facility] protocol Maintain precautions DAJA SOTO NP Sep 19, 2018 10:28
[2018-09-19 10:41] VITALS: BP 120/93
[2018-09-19 15:03] VITALS: BP 132/86
[2018-09-19 20:30] VITALS: BP 138/82
[2018-09-19] MEDS ORDERED: traZODone HCL 50 MG TAB PO PRN (21:50)
[2018-09-20 06:36] VITALS: BP 117/66
[2018-09-20] MEDS: NICOTINE INH SYSTEM 10 MG/INH INH PRN (08:15)
[2018-09-20] MEDS: MULTIVITAMINS TAB PO SCH (08:16)
[2018-09-20] MEDS: FOLIC ACID 1 MG TAB PO SCH (08:16)
[2018-09-20] MEDS: THIAMINE HCL 100 MG TAB PO SCH (08:16)
[2018-09-20] MEDS ORDERED: NIC10R INH (12:11)
--- NOTE | 2018-09-21 04:08 | DISCHARGE SUMMARY ---
DATE OF ADMISSION: September 18, 2018 DATE OF DISCHARGE: September 20, 2018 ATTENDING PRACTITIONER Kristie Terry, Psychiatric Nurse Practitioner Patient was seen on the morning of September 20, 2018. FINAL DIAGNOSIS Alcohol use disorder, severe. REASON FOR ADMISSION Patient was admitted to the unit for alcohol detox. He denies that he was having suicidal thoughts at the time of admission. Patient reports that he had relapsed on alcohol and had been drinking for the past three to four weeks. He is requesting discharge today. PHYSICAL EXAMINATION Vital signs on the morning of discharge include temperature 97.5, pulse 66, blood pressure 117/66, pulse oximetry 95% on room air. His CIWA score was 2. He denies nausea, vomiting, hallucinations. No tremor is noted. LABORATORY DATA Laboratory data completed upon admission had shown blood alcohol level of 82. MENTAL STATUS EXAMINATION GENERAL APPEARANCE, BEHAVIOR AND ATTITUDE: This is a thin 22-year-old male who appears his stated age. He is dressed in hospital scrubs, per policy. He is polite and cooperative. SPEECH: Clear and spontaneous and of normal rate, rhythm and volume. MOOD: Fine. AFFECT: Rangeful and mood-congruent. THOUGHT PROCESSES: Overall logical and goal directed. No loose associations or flight of ideas. THOUGHT CONTENT: He denies any suicidal ideation, denies homicidal ideation, denies auditory, visual, or other hallucinations, denies paranoia, and no delusions are elicited. SENSORIUM: Clear. COGNITION: Alert and oriented to person, place, time, and situation. MEMORY: Immediate, recent, and remote estimated grossly intact. INTELLIGENCE: Estimated, based upon interview. INSIGHT AND JUDGMENT: Fair. He acknowledges that he has an alcohol use disorder. Today he did not want to meet with AA representatives who were coming up to the unit. He is feeling that he can maintain his sobriety on his own accord. TREATMENT Patient was monitored per the C[facility] protocol. No new medications were initiated. HOSPITAL COURSE Patient was cooperative during his stay. No medications were initiated. As mentioned, he was monitored per the C[facility]L protocol. He did receive Valium as indicated. His last Valium dose was over 24 hours ago. He is requesting discharge on this day. CONDITION OF PATIENT ON DISCHARGE Considered stable and a minimal risk to himself and others, appropriate for outpatient management. DISPOSITION Patient is discharged to home. It is recommended that he follow up with Alcoholics Anonymous and [facility] for outpatient support in maintaining his sobriety. He was discharged on no medications. The 24-hour crisis line number was provided should symptoms or problems return. The risks, benefits, and alternatives of the above discharge plan were discussed with client. Informed consent was given to proceed with the above discharge plan by this competent patient. MARIA TERESA
== END 2018-09-20 13:35 | disposition home or self-care (01) | DRG 897 ==
LOC: BHS 10:17
PROVIDERS: ADMIT Psychiatry & Neurology Psychiatry; ATTEND Psychiatry & Neurology Psychiatry
DX: F10.230 Alcohol dependence with withdrawal, uncomplicated (principal); F17.210 Nicotine dependence, cigarettes, uncomplicated; Y90.4 Blood alcohol level of 80-99 mg/100 ml; Z81.8 Family history of other mental and behavioral disorders; Z81.1 Family history of alcohol abuse and dependence

== ENCOUNTER → 2018-09-18 | Outpatient (CLI) | payer OTHER ==
[~2018-09-18] MED LIST: NIC10R INH
== END ==
LOC: AMB 07:39
PROVIDERS: ATTEND Nurse Practitioner
DX: R11.2 Nausea with vomiting, unspecified (principal); F10.239 Alcohol dependence with withdrawal, unspecified
CPT/HCPCS: A0425; A0427

== ENCOUNTER 2019-01-10 16:19 | Emergency (ER) | payer OTHER ==
--- NOTE | 2019-01-10 16:39 | ER Report ---
History and Physical Time Seen By MD: 16:37 Hx. of Stated Complaint: PT REPORTS HIS DAD IS WORRIED ABOUT HIS DRINKING. PT REPORTS "5 SHOTS OF VODKA TODAY" HPI/ROS CHIEF COMPLAINT: Alcohol intoxication and suicidal ideation HISTORY OF PRESENT ILLNESS: 23-year-old male comes emergency Department intoxicated and admits to drinking daily for the last 7 years with his father father went to visit him today on Father's Day and when he got there he notices markedly intoxicated that a conversation this patient told his father he does not want to live anymore father was concerned of brought him to the ER for evaluation. Patient has had a suicidal attempt in the past has had suicidal ideation in the past says he is not suicidal now but does admit to making the comment. Patient was alcohol denies illicit drug use no homicidal ideation currently no additional complaints noted. REVIEW OF SYSTEMS: Respiratory: No cough, no dyspnea. Cardiovascular: No chest pain, no palpitations. Gastrointestinal: No vomiting, no abdominal pain. Musculoskeletal: No back pain. Remainder of the 14 system rev: Yes Allergies: Coded Allergies: No Known Drug Allergies (Unverified , 01/10/19) Home Meds Discontinued Reported Medications Nicotine (NICOTROL) 10 Mg/Inh Ctr, 10 MG INH PRN PRN for NICOTINE REPLACEMENT 09/20/18 Reviewed Nurses Notes: Yes Old Medical Records Reviewed: Yes Hx Smoking: Yes Smoking Status: Current: Every Day Smoker Exposure to Second Hand Smoke?: No Hx Substance Use Disorder: No Hx Alcohol Use: Yes Constitutional Vital Sign - Last 24 Hours 01/10/19 01/10/19 01/10/19 01/10/19 16:20 16:30 16:45 17:00 Temp 97.9 Pulse 125 121 107 93 Resp 18 B/P (MAP) 139/96 139/96 (110) 131/91 (104) 126/87 (100) Pulse Ox 94 94 94 94 O2 Delivery Room Air Physical Exam General Appearance: The patient is alert, has no immediate need for airway protection and no current signs of toxicity. Intoxicated smells of alcohol Eyes: Pupils equal and round no injection. Respiratory: Chest is non tender, lungs are clear to auscultation. Cardiac: regular rate and rhythm [ ] Gastrointestinal: Abdomen is soft and non tender, no masses, bowel sounds normal. Musculoskeletal: Neck: Neck is supple and non tender. Extremities have full range of motion and are non tender. Skin: No rashes or lesions. [ ] DIFFERENTIAL DIAGNOSIS: After history and physical exam differential diagnosis was considered for alcohol intoxication and alcohol abuse suicidal ideation without plan Medical Decision Making Data Points Result Diagram: 01/10/19 1638 01/10/19 1638 Laboratory Hematology Test 01/10/19 16:22 01/10/19 16:38 Urine Color Yellow Urine Clarity Clear Urine pH 6.0 pH (4.8-9.5) Urine Specific [place] 1.020 Urine Protein Negative mg/dL (NEGATIVE) Urine Glucose (UA) Negative mg/dL (NEGATIVE) Urine Ketones Negative mg/dL (NEGATIVE) Urine Blood Negative (NEGATIVE) Urine Nitrite Negative (NEGATIVE) Urine Bilirubin Negative (NEGATIVE) Urine Urobilinogen Negative mg/dL (0.2-1.9) Urine Leukocyte Esterase Negative (NEGATIVE) Urine RBC None /HPF (0-2/HPF) Urine WBC 1 /HPF (0-5/HPF) Urine Squamous Epithelial Cells Few /LPF (</=FEW) Urine Transitional Epithelial Cells Few /LPF (NONE-FEW) Urine Bacteria Negative /HPF (NONE-FEW) Urine Hyaline Casts Few /LPF (NONE-FEW) Urine Mucus Few /HPF (NONE-FEW) Urine Opiates Screen Negative Urine Barbiturates Screen Negative Ur Tricyclic Antidepressants Screen Negative Urine Phencyclidine Screen Negative Urine Amphetamines Screen Negative Urine Benzodiazepines Screen Negative Urine Cocaine Screen Negative Urine Cannabinoids Screen Negative Red Blood Count 5.53 M/uL (4.00-5.60) Mean Corpuscular Volume 91.0 fL (80.0-96.0) Mean Corpuscular Hemoglobin 31.9 pg (26.0-33.0) Mean Corpuscular Hemoglobin Concent 35.1 g/dL (32.0-36.0) Red Cell Distribution Width 12.9 % (11.5-14.5) Mean Platelet Volume 9.2 fL (7.2-11.1) Neutrophils (%) (Auto) 83.5 % (39.4-72.5) Lymphocytes (%) (Auto) 12.0 % (17.6-49.6) Monocytes (%) (Auto) 4.1 % (4.1-12.4) Eosinophils (%) (Auto) 0.1 % (0.4-6.7) Basophils (%) (Auto) 0.3 % (0.3-1.4) Nucleated RBC Relative Count (auto) 0.1 /100WBC Neutrophils # (Auto) 9.6 K/uL (2.0-7.4) Lymphocytes # (Auto) 1.4 K/uL (1.3-3.6) Monocytes # (Auto) 0.5 K/uL (0.3-1.0) Eosinophils # (Auto) 0.0 K/uL (0.0-0.5) Basophils # (Auto) 0.0 K/uL (0.0-0.1) Nucleated RBC Absolute Count (auto) 0.01 K/uL Sodium Level 147 mmol/L (137-145) Potassium Level 3.6 mmol/L (3.5-5.0) Chloride Level 108 mmol/L (98-107) Carbon Dioxide Level 24 mmol/L (22-30) Blood Urea Nitrogen 8 mg/dl (9-21) Creatinine 1.10 mg/dl (0.66-1.25) Glomerular Filtration Rate Calc > 60.0 Random Glucose 103 mg/dl (75-110) Calcium Level 8.8 mg/dl (8.4-10.2) Magnesium Level 2.0 mg/dl (1.7-2.2) Total Bilirubin 0.4 mg/dl (0.2-1.3) Aspartate Amino Transf (AST/SGOT) 41 U/L (0-35) Alanine Aminotransferase (ALT/SGPT) 39 U/L (0-56) Alkaline Phosphatase 84 U/L (0-126) Total Protein 7.2 g/dl (6.3-8.2) Albumin 4.6 g/dl (3.5-5.0) Salicylates Level < 10 mg/L Salicylate Last Dose Date unk Acetaminophen Level < 10 ug/ml Serum Alcohol 265 mg/dl Chemistry Test 01/10/19 16:22 01/10/19 16:38 Urine Color Yellow Urine Clarity Clear Urine pH 6.0 pH (4.8-9.5) Urine Specific [place] 1.020 Urine Protein Negative mg/dL (NEGATIVE) Urine Glucose (UA) Negative mg/dL (NEGATIVE) Urine Ketones Negative mg/dL (NEGATIVE) Urine Blood Negative (NEGATIVE) Urine Nitrite Negative (NEGATIVE) Urine Bilirubin Negative (NEGATIVE) Urine Urobilinogen Negative mg/dL (0.2-1.9) Urine Leukocyte Esterase Negative (NEGATIVE) Urine RBC None /HPF (0-2/HPF) Urine WBC 1 /HPF (0-5/HPF) Urine Squamous Epithelial Cells Few /LPF (</=FEW) Urine Transitional Epithelial Cells Few /LPF (NONE-FEW) Urine Bacteria Negative /HPF (NONE-FEW) Urine Hyaline Casts Few /LPF (NONE-FEW) Urine Mucus Few /HPF (NONE-FEW) Urine Opiates Screen Negative Urine Barbiturates Screen Negative Ur Tricyclic Antidepressants Screen Negative Urine Phencyclidine Screen Negative Urine Amphetamines Screen Negative Urine Benzodiazepines Screen Negative Urine Cocaine Screen Negative Urine Cannabinoids Screen Negative White Blood Count 11.5 k/uL (4.5-11.0) Red Blood Count 5.53 M/uL (4.00-5.60) Hemoglobin 17.6 g/dL (14.0-18.0) Hematocrit 50.3 % (42.0-52.0) Mean Corpuscular Volume 91.0 fL (80.0-96.0) Mean Corpuscular Hemoglobin 31.9 pg (26.0-33.0) Mean Corpuscular Hemoglobin Concent 35.1 g/dL (32.0-36.0) Red Cell Distribution Width 12.9 % (11.5-14.5) Platelet Count 268 K/uL (150-450) Mean Platelet Volume 9.2 fL (7.2-11.1) Neutrophils (%) (Auto) 83.5 % (39.4-72.5) Lymphocytes (%) (Auto) 12.0 % (17.6-49.6) Monocytes (%) (Auto) 4.1 % (4.1-12.4) Eosinophils (%) (Auto) 0.1 % (0.4-6.7) Basophils (%) (Auto) 0.3 % (0.3-1.4) Nucleated RBC Relative Count (auto) 0.1 /100WBC Neutrophils # (Auto) 9.6 K/uL (2.0-7.4) Lymphocytes # (Auto) 1.4 K/uL (1.3-3.6) Monocytes # (Auto) 0.5 K/uL (0.3-1.0) Eosinophils # (Auto) 0.0 K/uL (0.0-0.5) Basophils # (Auto) 0.0 K/uL (0.0-0.1) Nucleated RBC Absolute Count (auto) 0.01 K/uL Glomerular Filtration Rate Calc > 60.0 Calcium Level 8.8 mg/dl (8.4-10.2) Magnesium Level 2.0 mg/dl (1.7-2.2) Total Bilirubin 0.4 mg/dl (0.2-1.3) Aspartate Amino Transf (AST/SGOT) 41 U/L (0-35) Alanine Aminotransferase (ALT/SGPT) 39 U/L (0-56) Alkaline Phosphatase 84 U/L (0-126) Total Protein 7.2 g/dl (6.3-8.2) Albumin 4.6 g/dl (3.5-5.0) Salicylates Level < 10 mg/L Salicylate Last Dose Date unk Acetaminophen Level < 10 ug/ml Serum Alcohol 265 mg/dl Toxicology Test 01/10/19 16:22 01/10/19 16:38 Urine Opiates Screen Negative Urine Barbiturates Screen Negative Ur Tricyclic Antidepressants Screen Negative Urine Phencyclidine Screen Negative Urine Amphetamines Screen Negative Urine Benzodiazepines Screen Negative Urine Cocaine Screen Negative Urine Cannabinoids Screen Negative Salicylates Level < 10 mg/L Salicylate Last Dose Date unk Acetaminophen Level < 10 ug/ml Serum Alcohol 265 mg/dl Urinalysis Test 01/10/19 16:22 Urine Color Yellow Urine Clarity Clear Urine pH 6.0 pH (4.8-9.5) Urine Specific [place] 1.020 Urine Protein Negative mg/dL (NEGATIVE) Urine Glucose (UA) Negative mg/dL (NEGATIVE) Urine Ketones Negative mg/dL (NEGATIVE) Urine Blood Negative (NEGATIVE) Urine Nitrite Negative (NEGATIVE) Urine Bilirubin Negative (NEGATIVE) Urine Urobilinogen Negative mg/dL (0.2-1.9) Urine Leukocyte Esterase Negative (NEGATIVE) Urine RBC None /HPF (0-2/HPF) Urine WBC 1 /HPF (0-5/HPF) Urine Squamous Epithelial Cells Few /LPF (</=FEW) Urine Transitional Epithelial Cells Few /LPF (NONE-FEW) Urine Bacteria Negative /HPF (NONE-FEW) Urine Hyaline Casts Few /LPF (NONE-FEW) Urine Mucus Few /HPF (NONE-FEW) ED Course/Re-evaluation ED Course ED course 23-year-old male history of alcohol abuse and suicidal ideation signed in voluntarily is intoxicated alcohol level CCLXV comes in today after making a declarative Stamey Jillian no longer live to his father he claims confirm that statement to me directly behavioral health at bedside will be admitting diagnosis will be alcohol abuse and suicidal ideation Decision to Disposition Date: Jan 10, 2019 Decision to Disposition Time: 17:45 Depart Departure Latest Vital Signs Vital Signs Date Time Temp Pulse Resp B/P (MAP) Pulse Ox O2 Delivery O2 Flow Rate FiO2 01/10/19 17:00 93 126/87 (100) 94 01/10/19 16:20 97.9 18 Room Air Impression: Primary Impression: Alcohol dependence Additional Impressions: Alcohol use disorder, severe, dependence Suicidal ideation Condition: Condition Unchanged Disposition: XFER TO [facility] New Scripts No Active Prescriptions or Reported Meds Problem Qualifiers NICK MCCAULEY MD Jan 10, 2019 16:39
[2019-01-10 16:53] LABS: PLATELET COUNT, AUTOMATED 268 K/uL (150-450)
[2019-01-10 17:45] VITALS: BP 109/77
== END 2019-01-10 18:00 ==
LOC: ER 16:45
DX: R45.851 Suicidal ideations (principal); F10.220 Alcohol dependence with intoxication, uncomplicated; Y90.8 Blood alcohol level of 240 mg/100 ml or more
CPT/HCPCS: 36415; 80305; 80320; 80329; 81001; 82040; 82247; 82310; 82374; 82435; 82565; 82947; 83735; 84075; 84132; 84155; 84295; 84443; 84450; 84460; 84520; 85025; 99284

== ENCOUNTER 2019-01-10 17:46 | Inpatient (IN) | payer OTHER ==
[~2019-01-10] VITALS: Ht 175.3 cm; Wt 64.0 kg
[2019-01-10 18:05] VITALS: BP 128/82
[2019-01-10] MEDS ORDERED: MAG HYD/AL HYD/SIMETH 30ML UDC PO PRN (18:05)
[2019-01-10] MEDS ORDERED: NICOTINE CARTRIDGE 1 EA PO PRN (18:10)
[2019-01-10] MEDS ORDERED: NICOTINE INH SYSTEM 10 MG/INH INH PRN (18:10)
[2019-01-10 22:30] VITALS: BP 111/69
[2019-01-10] MEDS: DIAZEPAM 10 MG TAB PO PRN (22:35)
[2019-01-11 04:00] VITALS: BP 128/96
[2019-01-11] MEDS: DIAZEPAM 10 MG TAB PO PRN ×3 (04:02→05:58)
[2019-01-11 07:54] VITALS: BP 121/78
[2019-01-11] MEDS: FOLIC ACID 1 MG TAB PO SCH (07:58)
[2019-01-11] MEDS: THIAMINE HCL 100 MG TAB PO SCH (07:58)
[2019-01-11] MEDS: MULTIVITAMINS PO SCH (07:58)
[2019-01-11 12:24] VITALS: BP 127/83
[2019-01-11 16:25] VITALS: BP 115/80
[2019-01-12 05:58] VITALS: BP 112/70
[2019-01-12] MEDS: THIAMINE HCL 100 MG TAB PO SCH (08:07)
[2019-01-12] MEDS: FOLIC ACID 1 MG TAB PO SCH (08:07)
[2019-01-12] MEDS: MULTIVITAMINS PO SCH (08:07)
--- NOTE | 2019-01-12 09:38 | HISTORY AND PHYSICAL ---
DATE OF ADMISSION: January 10, 2019 Patient was seen in the a.m. of January 11, 2019 at approximately 1000 hours for note concerning this dictation. ATTENDING PHYSICIAN Eric Junior MD PRESENTING PROBLEM/CHIEF COMPLAINT Alcohol intoxication. Patient voluntarily admitted for help with alcohol withdrawal. HISTORY OF PRESENT ILLNESS This will make the third admission under similar circumstances for this 23-year old male beginning with the first admission here at [facility] on June 11, 2018, for alcohol withdrawal. Another admission following in August 2018. Patient returning on January 10, 2019, accompanied by his father, who he was visiting for Father's Day. Patient was intoxicated, continues to drink and is suffering the social consequences of alcoholism concerning financial difficulty, reliance on parents and no employment for quite some time. Patient's father noting in emergency room note that his father was concerned with the markedly intoxicated state patient was in upon visiting him at his home and patient's father also indicating that he made a comment that he does not want to live anymore. Patient, again, admitted on a voluntary basis after medical clearance in the emergency room. During the initial interview, patient indicated that his chief complaint was "my dad wanted me to come" and that "my dad thinks I am depressed". Patient reports he "has not been drinking that long". Patient reports specific stressors and that he does not have a job. When asked if there is one thing he would want to change in his life patient reports "I wish I didn't want to drink". Regarding depressive symptoms, patient reports his appetite has been okay. He has guilt over losing his previous employment some six months ago or so. Patient denies any problems with energy or concentration. Patient does show a decline in interest in activities, which including drawing and painting. Patient reports some depression still occurs even when the patient has not been drinking. Patient denies any significant sleep problems including any evidence of sleep apnea and patient reports his mood is low today regarding "I don't want to be here on the Unit". Patient now denying any suicidal ideation that his father was concerned about in the state of intoxication. Patient reports some periods of difficulty sleeping in the past. They seem to fall short of a symptom of robert or a diagnosis of bipolar disorder. Patient denies any current psychotic symptoms. Denies a history of panic attacks or symptoms that would meet criteria for PTSD, although patient does relate that he certainly had difficulty growing up with an older brother who suffered from schizophrenia. Patient not wanting to go into details regarding this at this time. Patient denying any phobias, anorexia, bulimia, OCD or self-harm issues. MENTAL HEALTH ISSUE Again, patient was last on the Behavioral Health Unit in August 2018. This will be the patient's third admission to [facility]. Patient reports he has not been to any other locations for treatment on a Behavioral Health Unit. Patient has never been to AA meetings and does not seem to follow up appropriately on previous discharges from Behavioral Health. Patient denying wanting AA members to come to the Unit, even though this was highly suggested during this admit. Patient not receiving any current outpatient care, has not been on any medications. Patient reports suicide attempt seven years ago, in which he tried to cut himself. Patient did not receive treatment at that time. In August, patient reported he has never had any previous suicidal ideation or attempts and, again, patient not following up with recommended IOP treatment that was recommended after previous admission. FAMILY PSYCHIATRIC HISTORY Per previous report, patient has a brother with schizophrenia who I believes continues to live with his mother and patient has a brother who has substance use disorder and he had a maternal grandfather who of complications relating to alcoholism. PAST MEDICAL HISTORY Overall unremarkable. ALLERGIES Patient denies. CURRENT MEDICATIONS None. SOCIAL HISTORY Per previous report. Patient was born in [place], [place] to parents who were and still are. He is the youngest of five children. Patient graduated high school in [employer] and stated he had fairly good grades. He did one year at the [employer] but did not complete. 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 He lost his job completely shortly after that. Patient continues to live alone in an apartment. He is supported by his parents. He is not believed to be in a relationship at this time. He has never . He has no children. Patient in the past has reported a good relationship with his parents and states they do help out with money and patient stating that he has a relationship with two of his siblings. Patient also stating that his parents are not aware of the diversion of account financial manager they are giving this patient, which he uses to consume alcohol. LEGAL HISTORY Patient denies any legal history. SUBSTANCE ABUSE HISTORY Significant for alcohol, which he in the past stated he started around 16 and he had abuses Vicodin in the past as well. He has tried marijuana in the past and patient dose use nicotine. PHYSICAL EXAMINATION Please see emergency room note, notable for thin 23-year old male. No acute medical distress. VITAL SIGNS: Temperature 97.9, pulse 125 and elevated, respiratory rate 18, blood pressure 139/96, pulse oximetry 94 on room air at time of admission. LABORATORY DATA CBC notable for white blood cells elevated at 11.5 with CMP notable for elevation in AST of 41. TSH slightly low at 0.45. This may be secondary to acute alcohol intoxication, which seems to alter accuracy of TSH readings and this will need further evaluation. Urinalysis was unremarkable and toxicology screen notable for serum alcohol level of 265, negative for any substances of abuse. MENTAL STATUS EXAM: GENERAL APPEARANCE, BEHAVIOR AND ATTITUDE: This is a fairly well-groomed, 23- year old male who appears stated age. During initial interview, patient currently being treated for alcohol withdrawal management via [facility] protocol. Patient was cooperative, was reserved and not forthcoming regarding information concerning interactions between he and his father. Patient non-tearful. SPEECH: Mostly within normal limits. Regular rate, rhythm, volume and tone. MOOD: Described as okay if he "were not here". Patient seemingly admitted directly to the influences of his father's suggestions but appropriately admitted due to threats of self-harm. AFFECT: Mildly constricted and mood congruent overall. THOUGHT PROCESS: Appeared largely logical and goal-directed. No loose associations or flight of ideas were detected. THOUGHT CONTENT: Currently free of any auditory or visual hallucinations, ideas of reference, thought broadcastings, delusions, obsessions, compulsions. Patient adamantly during initial interview denying suicidal or homicidal ideations. SENSORIUM: Mostly clear. COGNITION: Patient was alert and oriented to person, place, time and situation. MEMORY; Immediate, recent and remote estimated at intact. INTELLIGENCE: Average based on interview and previous knowledge of this patient. INSIGHT AND JUDGMENT: Impaired due to battling ongoing addiction with alcohol. ASSESSMENT This was a 23-year old male who has now had his third admission suffering from severe alcohol use disorder at a relatively young age. Patient apparently continues to have a relationship with mother and father, who are giving him some financial support, which he admits to diverting to continue to use alcohol. Patient is unemployed. During the state of intoxication, indicating some possible thoughts of self-harm to his father. Patient may have a history of some underlying depression as well, although throughout his life this may be complicated by drug and alcohol use. At this time, patient seems to be suffering mostly from substance-induced mood disorder, on top of again severe alcohol use disorder. We will continue to manage alcohol withdrawal with diazepam and we will encourage patient to meet with AA members while on the Unit, develop an effective outpatient plan to stay sober and we will arrange a meeting with parents to discuss ongoing inadvertent enabling and to further evaluate thoughts or expressions of self-harm prior to admission. 1, Alcohol intoxication. 2. Alcohol withdrawal. 3. Alcohol use disorder, severe. 4. Alcohol induced mood disorder with stressors associated with illness including unemployment and financial dependence on parents and likely social isolation. PLAN 1. Admit to the Unit. 2. Necessary precautions will be implemented. 3. Patient will participate in individual group therapy. 4. Medications will be titrated accordingly and patient placed on CIWA protocol for alcohol withdrawal. 5. Collateral information will be acquired. 6. Estimated length of stay estimated to be three to five days. MTDD
[2019-01-12] MEDS ORDERED: NICOTROL CARTRIDGE PO (10:29)
[2019-01-12] MEDS ORDERED: NIC10R INH (10:29)
[2019-01-12] MEDS ORDERED: MULT-1379 PO (10:44)
--- NOTE | 2019-01-13 14:16 | SCHAAF DISCHARGE ---
DATE OF ADMISSION: January 10, 2019 DATE OF DISCHARGE: January 12, 2019 ATTENDING PHYSICIAN Eric Junior MD Patient was seen at approximately 1000 hours on the a.m. of January 10, 2019 for note concerning this dictation. FINAL DIAGNOSES 1. Alcohol use disorder, severe. 2. Substance induced mood disorder, resolved. 3. Social stressors related to illness. 4. Supportive relationship with his father. REASON FOR ADMISSION This is a 23-year-old male who suffers from significant alcohol dependence at a young age. Patient has been on the Unit now three times for alcohol withdrawal treatment. Patient encouraged each time to seek treatment actively on an outpatient basis and during this admission was strongly encouraged to enter residential treatment. Patient refusing. However, patient did remain on Unit to where alcohol withdrawal could be treated to completion. Patient initially admitted while in a state of intoxication making thoughts of self-harm to his father, who brought him to the emergency room. These seem to be a product of intoxication and dysphoric mood associated with such. Patient was not known to engage in any self-harm or indicate in any way an intent to harm self. Patient adamantly denying suicidal or homicidal ideation. Upon discharge, patient's father was contacted, who agreed to come and pick patient up at time of discharge and take him back to his apartment. Patient remains in a good relationship with his father overall. Alcohol withdrawal treated to completion via [facility] protocol and diazepam. Patient's mood improved. PHYSICAL EXAMINATION Please see emergency room note. Notable for 23-year old male in no acute medical distress, intoxicated. Vital signs at time of admission: Temperature 97.9, pulse 125, respiratory rate 18, blood pressure 139/96, pulse oximetry 94% on room air. At time of discharge from [facility] Unit, vital signs showed temperature 98.6, pulse 82, respiratory rate 16, blood pressure 112/70 and pulse oximetry 97% on room air. LABORATORY DATA TSH noted to be 0.45 and low. Patient aware of this and this will be re-drawn outside of the acute intoxication when the lab was drawn. Patient had no significant symptoms of hyperthyroidism nor hypothyroidism. CBC on January 10, 2019 notable for white blood cell count slightly elevated at 11.5. Otherwise, overall unremarkable CBC. CMP notable for AST elevated at 41. Urinalysis unremarkable. Toxicology screen negative with serum alcohol level of 265 upon admission. MENTAL STATUS EXAMINATION GENERAL APPEARANCE, BEHAVIOR AND ATTITUDE: This is polite, cooperative 23-year-old male making good eye contact, appears stated age, interacting well with this provider. Patient continues to be somewhat sarcastic and not fully realizing the significance of his alcohol use disorder but patient again cooperative and stating he would try to abstain. Patient denying any attempts to get patient into residential rehab. Patient denying allowing staff to have AA members visit while patient was on the Unit. SPEECH: Within normal limits. Regular rate, rhythm, volume and tone. MOOD: Described as okay. AFFECT: Full briefly at times. Mood congruent overall. THOUGHT PROCESSES: Goal-directed, logical. No loose associations or flight of ideas. THOUGHT CONTENT: Free of auditory or visual hallucinations, ideas of reference, thought broadcastings, delusions, obsessions or compulsions. Negative for any suicidal or homicidal ideation. SENSORIUM: Clear. COGNITION: Alert and oriented to person, place, time and situation. MEMORY: Immediate, recent and remote was estimated intact. INTELLIGENCE: Average, based on interview. INSIGHT AND JUDGMENT: Considered limited to a certain degree, especially while under the influence of alcohol but considered grossly intact and appropriate for outpatient care at time of discharge. RESULTS OF TESTING Imaging: None. Laboratory data: See above. CONSULTATIONS None. TREATMENT Patient received medications, participated in individual and group therapy. HOSPITAL COURSE Alcohol withdrawal was treated to completion via [facility] protocol with diazepam. Patient was given nicotine replacement while on the Unit as well, multivitamin and additional B vitamins and folic acid. Patient continued to improve. Alcohol withdrawal again treated to completion. CONDITION OF PATIENT ON DISCHARGE Stable. Considered a minimal risk to himself or others in the absence of alcohol use. DISPOSITION The patient was discharged to home in the care of his father. He will followup will outpatient services as directed for further evaluation of any depression that is underlying alcohol use. Patient agreed to abstain from alcohol, would attend AA and obtain a sponsor. Was strongly encouraged to consider residential rehab and Crisis Line was given should symptoms return. Patient would remain on multivitamin at time of discharge. MARIA TERESA
== END 2019-01-12 14:00 | disposition home or self-care (01) | DRG 897 ==
LOC: BHS 17:46
PROVIDERS: ADMIT Nurse Practitioner Psychiatric/Mental Health; ATTEND Nurse Practitioner Psychiatric/Mental Health
PROC: HZ2ZZZZ Detoxification Services for Substance Abuse Treatment (ICD-10-PCS; principal; 2019-01-12)
DX: F10.239 Alcohol dependence with withdrawal, unspecified (principal); F10.229 Alcohol dependence with intoxication, unspecified; F10.24 Alcohol dependence with alcohol-induced mood disorder; Y90.8 Blood alcohol level of 240 mg/100 ml or more